=== PATIENT | female | born 1935 | race Caucasian/White ===

== ENCOUNTER → 2018-02-25 | Outpatient (CLI) | payer MEDICARE, OTHER ==
[2018-02-25] MEDS: REGADENOSON 0.4 MG/5 ML DISP.SYRIN. IV (10:56)
== END | disposition home or self-care (01) ==
LOC: NM 08:53
DX: R07.9 Chest pain, unspecified (principal); R53.83 Other fatigue; R94.31 Abnormal electrocardiogram [ECG] [EKG]
CPT/HCPCS: 78452; 93017; 96374; 96375; 96376; A9500; J2785

== ENCOUNTER → 2021-04-21 | Outpatient (CLI) | payer MEDICARE, OTHER ==
[2014-09-18 19:48] VITALS: BP 105/61
[~2021-04-21] MED LIST: REGADENOSON 0.4 MG/5 ML DISP.SYRIN. IV ONE
--- NOTE | 2021-04-21 17:37 | CARD ---
MR#: [id number] Date of Study: 04/21/2021 Ordering Physician: XU HUNT, Referring Physician: XU HUNT Tech: Myranda Ovalles RDCS APPROVED REPORT EXAM: Two-dimensional and M-mode echocardiogram with Doppler and color Doppler. Other Information Quality : AverageHR: 83bpm Rhythm : NSR INDICATION Chest Pain 2D DIMENSIONS RVDd3.2 (2.9-3.5cm)Left Atrium(2D)3.5 (1.6-4.0cm) IVSd1.1 (0.7-1.1cm)Aortic Root(2D)3.0 (2.0-3.7cm) LVDd4.2 (3.9-5.9cm)LVOT Diameter2.0 (1.8-2.4cm) PWd1.2 (0.7-1.1cm)LVDs2.4 (2.5-4.0cm) FS (%) 43.8 %SV60.7 ml Aortic Valve AoV Peak Matt.116.1cm/sAoV VTI26.2cm AO Peak GR.5.4mmHgLVOT Peak Matt.91.6cm/s AO Mean GR.2mmHgAVA (VMAX)2.40cm2 Mitral Valve MV E Rzhcfbqn83.4cm/sMV DECEL [id number] MV A Rnwdkgoq63.7cm/sE/A Ratio0.8 Pulmonary Valve PV Peak Lhomyljs49.7cm/s Tricuspid Valve TR P. Dpsbfzzr094ka/sTR Peak Gr.24mmHg LEFT VENTRICLE The left ventricle is normal size. There is mild concentric left ventricular hypertrophy. The left ve ntricular systolic function is normal. The left ventricular ejection fraction is 55 to 60%. There is normal LV segmental wall motion. Transmitral Doppler flow pattern is Grade I-abnormal relaxation pat tern. RIGHT VENTRICLE The right ventricle is normal size. There is normal right ventricular wall thickness. The right ventr icular systolic function is normal. ATRIA The left atrium is mildly dilated. The right atrium size is normal. The interatrial septum is intact with no evidence for an atrial septal defect or patent foramen ovale as noted on 2-D or Doppler imagi ng. AORTIC VALVE The aortic valve is calcified but opens well. Doppler and Color Flow revealed no significant aortic r egurgitation. There is no significant aortic valvular stenosis. MITRAL VALVE The mitral valve is thickened but opens well. Mitral annular calcification is mild. There is no evide nce of mitral valve prolapse. There is no mitral valve stenosis. Doppler and Color-flow revealed mode rate mitral regurgitation. TRICUSPID VALVE The tricuspid valve is normal in structure and function. Doppler and Color Flow revealed mild tricusp id regurgitation. Estimated PAP 27 mmHg. There is no tricuspid valve stenosis. PULMONIC VALVE Doppler and Color Flow revealed no pulmonic valvular regurgitation. GREAT VESSELS The aortic root is normal in size. The ascending aorta is normal in size. The IVC is normal in size a nd collapses >50% with inspiration. PERICARDIAL EFFUSION There is no evidence of significant pericardial effusion. Critical Notification Critical Value: No <Conclusion> The left ventricle is normal size. The left ventricular systolic function is normal. The left ventricular ejection fraction is 55 to 60%. There is mild concentric left ventricular hypertrophy. Doppler and Color Flow revealed no significant aortic regurgitation. There is no significant aortic valvular stenosis. Doppler and Color-flow revealed moderate mitral regurgitation. Doppler and Color Flow revealed mild tricuspid regurgitation. Estimated PAP 27 mmHg. Signed by : Jose Grimes MD Electronically Approved : 04/21/2021 17:37:00
--- NOTE | 2021-04-21 18:03 | RAD ---
MR#: [id number] Date of Study: 04/21/2021 Ordering Physician: XU HUNT Referring Physician: MARTHA GENTILE Tech: RT Katelynn (R) (N) APPROVED REPORT Test Type: Pharmacological Stress Nurse/Tech: La Little R.N. Test Indications: cp Cardiac History: none Medications: see ehr Medical History: see ehr Resting ECG: sr Resting Heart Rate: 80 bpm Resting Blood Pressure: 151/80mmHg Pretest Chest Pain: No chest pain Nurse/Tech Notes lungs cta, heart tones regular Consent: The procedure was explained to the patient in lay terms. Informed consent was witnessed. Jacob eout was entered into Results [place] History and Stress Test performed by RT Mary (Eva) (N) Pharm. Details Pharmacologic stress testing was performed using 0.4mg per 5ml of regadenoson given intravenously ove r 7-10 seconds. Stress Symptoms No chest pain or symptoms.Dyspnea POST EXERCISE Reason for Termination: Infusion complete Target HR: No Max HR: 98 bpm Max Blood Pressure: 147/78mmHg Chest Pain: No. Arrhythmia: No. ST Change: No. INTERPRETATION Stress EKG Conclusion: The resting EKG shows a sinus rhythm, septal Q wave and mild nonspecific ST se gment changes. The stress EKG showed no significant changes from baseline. No EKG evidence of stress-induced ischemia. Imaging Protocol IMAGE PROTOCOL: Rest Tc-99m/stress Tc-99m 1 day Rest: Stress: Viability: Radiopharm.Tc99m XpkmnpuqjXc66t Sestamibi Nhlz9bYs 30.5mCi Duration 13.5min. 13.5min. Img Date 04/21/2021 04/21/2021 Inj-Img [id number]. 60min. Rest Admin Site:IV - Right AntecubitalAdministrator:RT Katelynn (Eva)(N) Stress Admin Site: IV - Right AntecubitalAdministrator: RT Juan Hernandez)(N) STRESS DATA End Diast. Vol.48.0mlLVEDV index BSA29.0ml End Syst. Vol.14.0mlLVESV index BSA9.0ml Myocardial Mass88.0gEject. Wdgcijie03.0% Stress Scores Regional WT0.00Summed WT4.00 Regional WM0.00Summed WM1.00 LV Perfusion The stress scans showed no significant defects. The rest scans showed no significant defects. Nuclear imaging shows no reversible ischemia or infarct. Wall Motion Left ventricular systolic function is normal with an ejection fraction of 68%. LV Perf. Quant 17 Seg. SSS1.00 17 Seg. SRS1.00 17 Seg. SDS1.00 Stress Defect Extent (% LAD)0.00Rest Defect Extent (% LAD)0.00Rev. Defect Extent (% LAD)0.00 Stress Defect Extent (% LCX) 2.50Rest Defect Extent (% LCX)0.00Rev. Defect Extent (% LCX)2.50 Stress Defect Extent (% RCA)0.00Rest Defect Extent (% RCA)0.00Rev. Defect Extent (% RCA)0.00 Stress Defect Extent (% BETZY)2.40Rest Defect Extent (% BETZY)0.00Rev. Defect Extent (% BETZY)2.20 Conclusion 1. No EKG evidence of stress-induced ischemia. 2. Nuclear imaging shows no reversible ischemia or infarct. 3. Normal left ventricular systolic function with an ejection fraction of 68%. 4. Low risk Lexiscan nuclear stress test. Signed by : Jose Grimes MD Electronically Approved : 04/21/2021 18:02:43
== END ==
LOC: NM 07:10
PROVIDERS: ATTEND Internal Medicine Cardiovascular Disease
DX: I08.3 Combined rheumatic disorders of mitral, aortic and tricuspid valves (principal); R07.9 Chest pain, unspecified
CPT/HCPCS: 78452; 93017; 93306; A9500; J2785

== ENCOUNTER 2022-03-20 10:51 | Emergency (ER) | payer MEDICARE, OTHER ==
[~2022-03-20] VITALS: Ht 157.5 cm; Wt 56.8 kg
[2022-03-20] MEDS ORDERED: ACETAMINOPHEN 160 MG/5 ML ORAL.SUSP. PO ONE (11:30)
--- NOTE | 2022-03-20 12:27 | RAD ---
PA and lateral views of the chest. Comparison: None. Indication: Fall with left-sided rib pain Findings: There is dense calcification of the mitral valve annulus. Lungs are hyperexpanded. The heart size is normal. No pneumothorax or effusion. No air space or interstitial disease. The bony structures are i ntact. Impression: 1. No acute cardiopulmonary process. Electronically signed by: Bret Linares MD (03/20/2022 12:24 PM) [id number]
--- NOTE | 2022-03-20 12:41 | RAD ---
Left foot 3 views. HISTORY: Left foot pain 3 views were taken of the left foot. There is not evidence of an acute fracture or osseous abnormalit y. IMPRESSION: 1. No fracture or acute osseous abnormality left foot. Electronically signed by: Zion Gastelum MD (03/20/2022 12:39 PM) [id number]
[2022-03-20 13:02] LABS: BASO % 0 % (0-3); EOS # 0.1 x10^3/uL (0.0-0.7); EOS % 1 % (0-3); HEMOGLOBIN 12.7 g/dL (12.0-15.5); LYMPH # 0.5 x10^3/uL (1.0-4.8); LYMPH % 12 % (24-48); MEAN CORPUSCULAR HEMOGLOBIN 27 pg (25-35); MEAN CORPUSCULAR HGB CONC 34 g/dL (31-37); MEAN CORPUSCULAR VOLUME 82 fL (79-100); MONO # 0.4 x10^3/uL (0.0-1.1); MONO % 10 % (0-9); NEUT # 3.3 x10^3/uL (1.8-7.7); NEUT % 77 % (31-73); PLATELET COUNT 159 x10^3/uL (140-400); RED BLOOD COUNT 4.65 x10^6/uL (3.50-5.40); RED CELL DISTRIBUTION WIDTH 13.3 % (11.5-14.5); WHITE BLOOD COUNT 4.3 x10^3/uL (4.0-11.0)
[2022-03-20 13:16] LABS: CALCIUM 8.5 mg/dL (8.5-10.1); CREATININE 0.8 mg/dL (0.6-1.0); GFR 67.7; POTASSIUM 3.6 mmol/L (3.5-5.1)
[2022-03-20 13:23] LABS: ALBUMIN 3.3 g/dL (3.4-5.0); ALBUMIN/GLOBULIN RATIO 0.9 (1.0-1.7); TOTAL BILIRUBIN 0.4 mg/dL (0.2-1.0)
[2022-03-20 14:02] LABS: BACTERIA,URINE 0 /HPF (0-FEW); WBC,URINE 0 /HPF (0-4)
--- NOTE | 2022-03-20 14:31 | PHYS DOC ---
Past Medical History Past Medical History: No Pertinent History Additional Past Medical Histor: pt is poor historian Past Surgical History: Cholecystectomy, Hysterectomy, Other Additional Past Surgical Histo: hernia, left leg hardware Smoking Status: Never Smoker Alcohol Use: None Drug Use: None General Adult EDM: Chief Complaint: MECHANICAL FALL HPI: HPI: Patient is a 86 year old female who presents 48 hours after a fall in which she stumbled in her left chest struck the top of a oxygen container. Patient states that she has been feeling fine for the last 2 days, she states that she came in today but to be evaluated because her children wanted her to. Patient states that she feels fine and has very minimal pain on the left chest, however she does not believe anything severe is happening. She states that she is breathing fine, no chest pain, she has minimal foot pain on her left foot. Her fourth toe is bruised from the fall, otherwise she has no symptoms Review of Systems: Review of Systems: Constitutional: Denies fever or chills. [] Eyes: Denies change in visual acuity. [] HENT: Denies nasal congestion or sore throat. [] Respiratory: Denies cough or shortness of breath. [] Cardiovascular: Denies chest pain or edema. [] GI: Denies abdominal pain, nausea, vomiting, bloody stools or diarrhea. [] : Denies dysuria. [] Musculoskeletal: Denies back pain or joint pain. [] Integument: Denies rash. [] Neurologic: Denies headache, focal weakness or sensory changes. [] Endocrine: Denies polyuria or polydipsia. [] Lymphatic: Denies swollen glands. [] Psychiatric: Denies depression or anxiety. [] Heart Score: C/O Chest Pain: No Risk Factors: Risk Factors: DM, Current or recent (<one month) smoker, HTN, HLP, family history of CAD, obesity. Risk Scores: Score 0 - 3: 2.5% MACE over next 6 weeks - Discharge Home Score 4 - 6: 20.3% MACE over next 6 weeks - Admit for Clinical Observation Score 7 - 10: 72.7% MACE over next 6 weeks - Early Invasive Strategies Current Medications: Current Medications Medications (Trade) Dose Ordered Sig/Marlee Start Time Stop Time Status Last Admin Dose Admin Acetaminophen (Children'S Tylenol) 160 mg 1X ONCE 03/20/22 11:30 03/20/22 11:31 UNV Allergies: Allergies: Allergies Coded Allergies Type Severity Reaction Last Updated Verified iodine Allergy Severe ANAPHYLATIC 04/21/21 No ibuprofen Allergy Unknown 09/18/14 No Physical Exam: PE: Constitutional: Well developed, well nourished, no acute distress, non-toxic appearance. [] HENT: Normocephalic, atraumatic, bilateral external ears normal, oropharynx moist, no oral exudates, nose normal. [] Eyes: PERRLA, EOMI, conjunctiva normal, no discharge. [] Neck: Normal range of motion, no tenderness, supple, no stridor. [] Cardiovascular:Heart rate regular rhythm, no murmur [] Lungs & Thorax: Bilateral breath sounds clear to auscultation [] Abdomen: Bowel sounds normal, soft, no tenderness, no masses, no pulsatile masses. [] Skin: Warm, dry, no erythema, no rash. [] Back: No tenderness, no CVA tenderness. [] Extremities: No tenderness, no cyanosis, no clubbing, ROM intact, no edema. Ecchymosis on the left fourth toe distal to the DIP [] Neurologic: Alert and oriented X 3, normal motor function, normal sensory function, no focal deficits noted. Normal ambulation [] Psychologic: Affect normal, judgement normal, mood normal. [] Current Patient Data: Labs: Laboratory Tests Test 03/20/22 11:06 03/20/22 13:30 White Blood Count 4.3 x10^3/uL (4.0-11.0) Red Blood Count 4.65 x10^6/uL (3.50-5.40) Hemoglobin 12.7 g/dL (12.0-15.5) Hematocrit 38.0 % (36.0-47.0) Mean Corpuscular Volume 82 fL (79-100) Mean Corpuscular Hemoglobin 27 pg (25-35) Mean Corpuscular Hemoglobin Concent 34 g/dL (31-37) Red Cell Distribution Width 13.3 % (11.5-14.5) Platelet Count 159 x10^3/uL (140-400) Neutrophils (%) (Auto) 77 % (31-73) H Lymphocytes (%) (Auto) 12 % (24-48) L Monocytes (%) (Auto) 10 % (0-9) H Eosinophils (%) (Auto) 1 % (0-3) Basophils (%) (Auto) 0 % (0-3) Neutrophils # (Auto) 3.3 x10^3/uL (1.8-7.7) Lymphocytes # (Auto) 0.5 x10^3/uL (1.0-4.8) L Monocytes # (Auto) 0.4 x10^3/uL (0.0-1.1) Eosinophils # (Auto) 0.1 x10^3/uL (0.0-0.7) Basophils # (Auto) 0.0 x10^3/uL (0.0-0.2) Sodium Level 129 mmol/L (136-145) L Potassium Level 3.6 mmol/L (3.5-5.1) Chloride Level 98 mmol/L (98-107) Carbon Dioxide Level 21 mmol/L (21-32) Anion Gap 10 (6-14) Blood Urea Nitrogen 10 mg/dL (7-20) Creatinine 0.8 mg/dL (0.6-1.0) Estimated GFR (Cockcroft-Gault) 67.7 BUN/Creatinine Ratio 13 (6-20) Glucose Level 117 mg/dL (70-99) H Calcium Level 8.5 mg/dL (8.5-10.1) Total Bilirubin 0.4 mg/dL (0.2-1.0) Aspartate Amino Transferase (AST) 24 U/L (15-37) Alanine Aminotransferase (ALT) 16 U/L (14-59) Alkaline Phosphatase 43 U/L (46-116) L Total Protein 7.0 g/dL (6.4-8.2) Albumin 3.3 g/dL (3.4-5.0) L Albumin/Globulin Ratio 0.9 (1.0-1.7) L Urine Collection Type Unknown Urine Color (Auto) Light yellow Urine Turbidity Clear Urine pH (Auto) 6.0 (<5.0-8.0) Urine Specific [place] 1.013 (1.000-1.030) Urine Protein (Auto) Negative mg/dL (Negative) Urine Glucose (Auto)(UA) Negative mg/dL (Negative) Urine Ketones (Auto) Trace mg/dL (Negative) Urine Blood (Auto) Trace (Negative) Urine Nitrite Negative (Negative) Urine Bilirubin (Auto) Negative (Negative) Urine Urobilinogen (Auto) Normal mg/dL (Normal) Urine Leukocyte Esterase (Auto) Negative (Negative) Urine RBC 1-2 /HPF (0-2) Urine WBC 0 /HPF (0-4) Urine Squamous Epithelial Cells Few /LPF Urine Bacteria 0 /HPF (0-FEW) Urine Mucus Slight /LPF Laboratory Tests 03/20/22 11:06 Laboratory Tests 03/20/22 11:06 Vital Signs: Vital Signs Date Time Temp Pulse Resp B/P (MAP) Pulse Ox O2 Delivery O2 Flow Rate FiO2 03/20/22 12:57 73 18 133/85 (101) 98 Room Air 03/20/22 10:53 97.9 97.9 EKG: EKG: [] Radiology/Procedures: Radiology/Procedures: Chest x-ray and foot x-ray within normal limits [] Impression: Chest contusion Course & Med Decision Making: Course & Med Decision Making Pertinent Labs and Imaging studies reviewed. (See chart for details) 86-year-old female with contusion, caused by mechanical fall. Patient stated that it happened 48 hours ago, patient states she feels fine just wants to get checked out and make sure nothing is broken. X-rays are within normal limits, labs and urinalysis also within normal limits. Discussed findings with patient, patient comfortable with discharge and primary care follow-up. I instructed patient to create a space in her house that would be easy to ambulate. Patient states that there are some obstructions but she would work on the location being more mobile friendly. Patient will follow-up with primary care physician. Otherwise patient is doing well, all questions answered, hemodynamically stable at the time of discharge, ER precautions given. Dragon Disclaimer: Giovanna Disclaimer: This electronic medical record was generated, in whole or in part, using a voice recognition dictation system. Departure Departure Impression: Primary Impression: Fall Disposition: 01 HOME / SELF CARE / HOMELESS Condition: GOOD Patient Instructions: Fall Prevention and Home Safety, [id number] Additional Instructions: Follow-up with your primary care physician this week. You should try to ensure that your living residence is free of tripping hazards and equipped with assistance devices for walking and being mobile inside of your residence. Your x-rays were normal, you do not have a fracture in your foot or your chest. EUGENIA BRYANT MD March 20, 2022 14:31
[2022-03-20 14:33] VITALS: BP 154/75
== END 2022-03-20 14:47 | disposition home or self-care (01) ==
LOC: ER 10:51
DX: S90.122A Contusion of left lesser toe(s) without damage to nail, initial encounter (principal); S20.212A Contusion of left front wall of thorax, initial encounter; Z88.8 Allergy status to other drugs, medicaments and biological substances; Z88.6 Allergy status to analgesic agent; W01.0XXA Fall on same level from slipping, tripping and stumbling without subsequent striking against object, initial encounter; Y93.89 Activity, other specified; Y92.89 Other specified places as the place of occurrence of the external cause; Y99.8 Other external cause status
CPT/HCPCS: 36415; 71046; 73630; 80053; 81001; 85025; 99285